=== PATIENT | male | born 1980 | race Two or more races ===

== ENCOUNTER 2020-08-12 17:14 | Emergency (ER) | payer OTHER, SELFPAY ==
--- NOTE | ~2020-08-12 | CT_ITS ---
EXAMINATION: CT brain wo con INDICATION: Transient alteration of awareness COMPARISON: None TECHNIQUE: Standard unenhanced head CT. The dose-length product (DLP) was 681.00 mGy-cm. The mA was a djusted according to patient size. Iterative reconstruction technique was employed. FINDINGS: There is no intracranial hemorrhage, acute infarction, or abnormal mass lesion. The ventric les are normal. There is no abnormal mass effect or midline shift. The cooper-white matter differentiat ion is normal. The basal cisterns are patent. The orbits are normal. The paranasal sinuses, mastoids and calvarium are normal. IMPRESSION: 1. No acute intracranial abnormality. Reviewed, dictated and finalized at location A.
--- NOTE | ~2020-08-12 | XR_ITS ---
EXAMINATION: XR chest 2V DATE: 08/12/2020 18:50 INDICATION: Seizure, drug use TECHNIQUE: AP and lateral views of the chest are obtained. COMPARISON: None available FINDINGS: The lungs are free of acute opacities. There is no pleural effusion or pneumothorax. The ca rdiomediastinal silhouette is normal. The visualized bones and soft tissues are unremarkable. IMPRESSION: 1. No acute cardiopulmonary abnormality. Reviewed, dictated and finalized at location A.
[2020-08-12 17:15] VITALS: BP 138/88; PULSE 93; RESP 12; TEMP 36.6; O2SAT 99
[2020-08-12 17:24] VITALS: PULSE 94; O2SAT 100
--- NOTE | 2020-08-12 17:26 | ECG_ITS ---
Measurements Intervals Holmes Rate: 95 P: 57 PA: 180 QRS: -29 QRSD: 101 T: 56 QT: 365 QTc: 460 Interpretive Statements SINUS RHYTHM POSSIBLE LEFT ATRIAL ENLARGEMENT INCOMPLETE RIGHT BUNDLE BRANCH BLOCK CONSIDER INFERIOR INFARCT, AGE INDETERMINATE BASELINE ARTIFACT- II, III, AVR, AVF, V2-V6 ABNORMAL ECG Electronically Signed On 08-13-2020 6:51:17 CDT by Lukas Laurent D.O.
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
[2020-08-12 18:00] LABS: Basophils Percent Auto 0.4 % (0.2-1.2); Eosinophils Percent Auto 0.4 % (0-4.4); Hematocrit 37.6 % (42.0-52.0); Hemoglobin 12.2 g/dL (14.0-18.0); Immature Granulocyte Absolute 0.18 K/mm3 (0.00-0.031); Immature Granulocyte Percent A 2.3 % (0-0.5); Lymphocytes Percent Auto 16.3 % (18.3-44.2); Mean Corpuscular HGB Conc 32.4 g/dl (32-36); Mean Corpuscular Hemoglobin 26.9 pg (26-34); Mean Corpuscular Volume 82.8 fl (80-100); Mean Platelet Volume 8.7 fl (7.4-10.4); Monocytes Absolute Auto 0.4 K/mm3 (0.1-0.6); Monocytes Percent Auto 5.4 % (2.6-8.5); Neutrophils Percent Auto 75.2 % (45.5-73.1); Platelet Count Result 330 k/mm3 (150-375); Red Blood Count 4.54 M/mm3 (4.6-6.20); Red Cell Distribution Width 15.9 % (11.5-14.5)
[2020-08-12 18:10] LABS: INR 0.9; Partial Thromboplastin Time 30.1 SECONDS (22.3-36.8); Prothrombin Time 13.1 Seconds (11.1-14.7)
[2020-08-12 18:10] LABS: Alveolar/Arterial O2 Gradient 29.6 mmHg; Base Excess ABG 0.3 mEq/l (+/-2.0); Fractional Inspired Oxygen 21 %; Modified Allen's Test Pass; Oxygen Content ABG 16.2 %vol (16.0-22.0); Oxyhemoglobin 91.7 % THb (90.0-100.0); PCO2 ABG 35.8 mmHg (35.0-45.0); PO2 ABG 77.3 mmHg (80.0-100.0); PO2 FiO2 Ratio Arterial Blood 3.68 %; Site Drawn RIGHT RADIAL; Total Hemoglobin 12.5 g/dL (12.0-18.0); pH ABG 7.445 (7.350-7.450)
[2020-08-12 18:11] LABS: Device ROOM AIR
[2020-08-12 18:15] LABS: Lactic Acid Reflex 3.5 mmol/L (0.7-2.1)
[2020-08-12 18:19] LABS: Alanine Aminotransferase 13 U/L (4-50); Albumin Level 4.3 g/dL (3.5-5.1); Alkaline Phosphatase 87 U/L (38-126); Anion Gap 8 mmol/L (8-16); Aspartate Amino Transferase 22 U/L (17-59); Bilirubin,Total 0.2 mg/dL (0.2-1.3); Blood Urea Nitrogen 9 mg/dL (9-20); CRP 0.6 mg/dL (<1.0); Calcium 9.4 mg/dL (8.4-10.2); Carbon Dioxide 27 mmol/L (22-30); Chloride 106 mmol/L (98-107); Estimated CRCL calculation 121 ml/min; Estimated Glomerular Filt Rate > 60; Glucose 115 mg/dL (75-110); Lipase 59 U/L (23-300); Potassium 4.1 mmol/L (3.4-5.0); Sodium 141 mmol/L (137-145)
[2020-08-12 18:28] LABS: Creatine Kinase MB 0.4 ng/mL (0.0-2.37); Troponin I < 0.012 ng/mL (0.000-0.034)
--- NOTE | 2020-08-12 18:34 | PC.NURSE ---
Pt in CT at this time.
[2020-08-12 19:12] LABS: Add Urine Microscopic? YES; Appearance Urine Clear (Clear); Bacteria Urine Trace /hpf; Bilirubin Urine Negative (Negative); Blood Urine Negative (Negative); Color Urine Yellow (Yellow); Glucose Urine UA Negative (Negative); Ketones Urine Negative (Negative); Leukocyte Esterase Ur Negative LEU/UL (Negative); Mucus Urine Rare /lpf; Nitrate Urine Negative (Negative); Protein Urine 2+ mg/dL (Negative); RBC Urine 0-2 /hpf (0-2); Urobilinogen Urine Negative mg/dL (<2.0); WBC Urine 0-3 /hpf
[2020-08-12 19:14] VITALS: PULSE 74; RESP 9; O2SAT 100
[2020-08-12] MEDS: SODIUM CHLORIDE 0.9% IV 2,000 ML 999 ML IV CONT (19:22)
[2020-08-12 20:01] VITALS: BP 156/108; PULSE 79; RESP 13; O2SAT 100
[2020-08-12 20:57] LABS: Reflex Lactic Acid Yes or No Add Lactic
[2020-08-12 21:01] VITALS: BP 154/95; PULSE 72; RESP 17; O2SAT 100
[2020-08-12 21:23] LABS: Lactic Acid Reflex 1.1 mmol/L (0.7-2.1)
[2020-08-12 22:00] VITALS: BP 155/97; PULSE 74; RESP 12; O2SAT 100
[2020-08-12] MEDS: ACETAMINOPHEN 500 MG TABLET 1000 MG PO (22:00)
== END 2020-08-12 22:30 | disposition home or self-care (01) ==
PROVIDERS: Emergency Provider Nurse Practitioner
DX: R56.9 Unspecified convulsions (principal); F11.10 Opioid abuse, uncomplicated; F17.210 Nicotine dependence, cigarettes, uncomplicated
CPT/HCPCS: 36415; 36600; 70450; 71046; 80053; 81001; 82553; 82805; 83605; 83690; 84484; 85025; 85610; 85730; 86140; 87040; 93005; 96360; 96361; 99284; A9270; J7030